=== PATIENT | male | born 2000 | race Caucasian/White ===

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

== ENCOUNTER 2021-02-28 14:49 | Emergency (ER) | payer BC ==
[2021-02-28 14:57] VITALS: BP 147/73; PULSE 86
[2021-02-28] MEDS ORDERED: Ibuprofen 400 MG Tab PO ONE (15:03)
[2021-02-28] MEDS ORDERED: Acetaminophen 325 MG Tab PO ONE (15:05)
--- NOTE | 2021-02-28 15:12 | EDM.PDOC ---
<HuitronJose - Last Filed: 02/28/21 15:06> ED HPI GENERAL MEDICAL PROBLEM - General Chief Complaint: Upper Extremity Injury/Pain Stated Complaint: SHOULDERS HURT Time Seen by Provider: 02/28/21 15:06 Source of Information: Reports: Patient - History of Present Illness INITIAL COMMENTS - FREE TEXT/NARRATIVE: Omid is a 20 year old male presenting to the emergency room with right shoulder pain. Shoulder pain started in the left shoulder 2 days ago and subsequently moved to the right shoulder today. He describes the pain as sharp when he moves his shoulder, he rates the pain at a 4/10, when he is not moving his shoulder he has no pain. He has not tried anything for his pain. He is a fairly active male, he plays basketball very frequently. He denies any weakness in his arms or changes in sensations. Onset: Gradual Right Shoulder Pain Score (Numeric/FACES): 4 - Related Data Allergies Allergy/AdvReac Type Severity Reaction Status Date / Time Penicillins Allergy Rash Verified 02/28/21 14:57 Home Meds: Home Meds Adalimumab [Humira(Cf) Pen] 40 mg SQ ASDIRECTED 05/25/20 [History] Past Medical History HEENT History: Reports: Otitis Media, Other (See Below) Other HEENT History: LEFT OTITIS MEDIA WITH SPONTANEOUS RUPTURE OF EARDRUM Cardiovascular History: Reports: Heart Murmur, Other (See Below) Other Cardiovascular History: SYSTOLIC MURMUR Respiratory History: Reports: None Gastrointestinal History: Reports: Chronic Diarrhea, Other (See Below) Other Gastrointestinal History: PATIENT NOTES HE MAY HAVE SEEN SOME BLOOD IN STOOL. COLONOSCOPY PROCEDURE FOR CHRONIC DIARRHEA Genitourinary History: Reports: None Musculoskeletal History: Reports: Fracture, Other (See Below) Other Musculoskeletal History: 2012, DISTAL RADIAL FRAXTURE, LEFT TOE FRACTURE. 2007, CLOSED FRACTURE DISTAL RADIUS AND ULNA. 2004, FRACTURE OF CLAVICLE, RIGHT, CLOSED Neurological History: Reports: None Psychiatric History: Reports: None Endocrine/Metabolic History: Reports: None Hematologic History: Reports: Anemia, Folic Acid Immunologic History: Reports: None Oncologic (Cancer) History: Reports: None Dermatologic History: Reports: None - Infectious Disease History Infectious Disease History: Reports: Novel Coronavirus, Other (See Below) Other Infectious Disease History: POSITIVE NOROVIRUS - Past Surgical History Head Surgeries/Procedures: Reports: None HEENT Surgical History: Reports: Adenoidectomy, Tonsillectomy, Other (See Below) Other HEENT Surgeries/Procedures: TYMPANOSTOMY TUBE PLAEMENT (BILATERAL) 03/24/2005. TONSILLECTOMY AND ADENOIDECTOMY 03/24/2005 Cardiovascular Surgical History: Reports: None GI Surgical History: Reports: None Male Surgical History: Reports: Circumcision Endocrine Surgical History: Reports: None Neurological Surgical History: Reports: None Musculoskeletal Surgical History: Reports: None Dermatological Surgical History: Reports: None Social & Family History - Family History Family Medical History: No Pertinent Family History - Tobacco Use Tobacco Use Status *Q: Never Tobacco User - Caffeine Use Caffeine Use: Reports: Soda Other Caffeine Use: OCCASIONAL ENERGY DRINK - Recreational Drug Use Recreational Drug Use: No Review of Systems - Review of Systems Review Of Systems: Comprehensive ROS is negative, except as noted in HPI. ED EXAM, GENERAL - Physical Exam Exam: See Below Exam Limited By: Altered Mental Status General Appearance: Alert, No Apparent Distress Eye Exam: Bilateral Eye: EOMI Ears: Normal External Exam Head: Atraumatic Neck: Normal Inspection, Full Range of Motion Respiratory/Chest: No Respiratory Distress, Lungs Clear, Normal Breath Sounds Cardiovascular: Normal Peripheral Pulses, Regular Rate, Rhythm Extremities: Normal Inspection, Non-Tender Neurological: Alert, Oriented, No Motor/Sensory Deficits, Other (Pain with abduction, no pain with all other motions of the shoulder, negative drop arm test and lift off test ) Departure - Departure Time of Disposition: 15:11 Disposition: Home, Self-Care 01 Clinical Impression: Supraspinatus (muscle) (tendon) sprain Qualifiers: Encounter type: initial encounter Laterality: right Qualified Code(s): S46.811A - Strain of other muscles, fascia and tendons at shoulder and upper arm level, right arm, initial encounter - Discharge Information *PRESCRIPTION DRUG MONITORING PROGRAM REVIEWED*: Not Applicable *COPY OF PRESCRIPTION DRUG MONITORING REPORT IN PATIENT NEREIDA: Not Applicable Instructions: Tendinitis, [id number] Forms: ED Department Discharge Additional Instructions: Tylenol given for pain, recommended continuing to use as need for pain. I suggested making an appointment with PCP next week if pain continues for possible PCP referral to physical therapy. Sepsis Event Note (ED) - Evaluation Sepsis Screening Result: No Definite Risk <Conchis Murray - Last Filed: 02/28/21 15:47> ED HPI GENERAL MEDICAL PROBLEM - General History Limitations: Reports: No Limitations Course - Vital Signs Last Recorded V/S: Last Vital Signs Temp 98.0 F 02/28/21 14:56 Pulse 86 02/28/21 14:56 Resp 18 02/28/21 14:56 BP 147/73 H 02/28/21 14:56 Pulse Ox 100 02/28/21 14:56 - Orders/Labs/Meds Meds: Medications Discontinued Medications Generic Name Dose Route Start Last Admin Trade Name Brenna PRN Reason Stop Dose Admin Acetaminophen 650 mg 02/28/21 15:05 02/28/21 15:09 Acetaminophen 325 Mg Tab PO 02/28/21 15:06 650 mg NOW ONE Administration Ibuprofen 400 mg 02/28/21 15:03 Ibuprofen 400 Mg Tab PO 02/28/21 15:04 ONETIME ONE - Re-Assessments/Exams Free Text/Narrative Re-Assessment/Exam: 02/28/21 15:47 I have examined the patient. I have discussed findings and treatment plan with resident. I agree with assessment plan and documentation. Departure - Departure Condition: Good Sepsis Event Note (ED) - Focused Exam Vital Signs: Vital Signs Temp Pulse Resp BP Pulse Ox 02/28/21 14:56 98.0 F 86 18 147/73 H 100
== END 2021-02-28 15:23 | disposition home or self-care (01) ==
LOC: DL.ED 14:49
DX: S46.811A Strain of other muscles, fascia and tendons at shoulder and upper arm level, right arm, initial encounter (principal); Z88.0 Allergy status to penicillin; X58.XXXA Exposure to other specified factors, initial encounter
CPT/HCPCS: 99283; A9270-GY

== ENCOUNTER 2024-11-23 06:29 | Day surgery (SDC) | payer BC ==
[2024-11-23] MEDS ORDERED: Midazolam 1 MG/ML 2 ML SDV ONE (06:45)
[2024-11-23] MEDS ORDERED: fentaNYL 100 MCG/2 ML SDV IV ONE (06:45)
[2024-11-23] MEDS ORDERED: fentaNYL 100 MCG/2 ML SDV ONE (06:45)
[2024-11-23] MEDS ORDERED: Midazolam 1 MG/ML 2 ML SDV IV ONE (06:45)
[2024-11-23] MEDS: Dextrose 5%-0.45% NaCl 1,000 ML IV SCH (06:50)
[2024-11-23] MEDS: fentaNYL 100 MCG/2 ML SDV IV ONE ×2 (07:32)
[2024-11-23] MEDS: Midazolam 1 MG/ML 2 ML SDV IV ONE ×6 (07:33→07:40)
[2024-11-23 08:38] VITALS: BP 136/85; PULSE 74
== END 2024-11-23 08:40 | disposition home or self-care (01) ==
LOC: DL.ENDO 06:29
PROVIDERS: ATTEND Internal Medicine Gastroenterology
DX: K50.90 Crohn's disease, unspecified, without complications (principal)
CPT/HCPCS: 45380; J2250; J3010; J7799